=== PATIENT | male | born 1970 | race Caucasian/White ===

== ENCOUNTER → 2017-12-18 | Outpatient (CLI) | payer MEDICARE | END | disposition home or self-care (01) | LOC: RAH 07:47 | PROVIDERS: ATTEND Internal Medicine | DX: R10.11 Right upper quadrant pain (principal); R10.12 Left upper quadrant pain; R74.8 Abnormal levels of other serum enzymes | CPT/HCPCS: 74150 ==

== ENCOUNTER → 2018-04-13 | Outpatient (CLI) | payer MEDICARE | END | disposition home or self-care (01) | LOC: RAH 09:58 | PROVIDERS: ATTEND Internal Medicine | DX: K57.30 Diverticulosis of large intestine without perforation or abscess without bleeding (principal); M47.815 Spondylosis without myelopathy or radiculopathy, thoracolumbar region; K76.0 Fatty (change of) liver, not elsewhere classified; N32.89 Other specified disorders of bladder | CPT/HCPCS: 74176 ==

== ENCOUNTER 2018-06-17 11:29 | Observation (INO) | payer MEDICARE ==
[~2018-06-17] VITALS: Ht 167.6 cm; Wt 59.9 kg
[2018-06-17 12:26] LABS: BASOPHILS % (AUTO) 1.3 % (0.0-5.0); EOSINOPHILS % (AUTO) 4.9 % (0.0-8.0); HEMATOCRIT 39.8 % (42-54); LYMPHOCYTES % (AUTO) 32.7 % (21.0-51.0); MEAN CORPUSCULAR HEMOGLOBIN 29.3 pg (27.0-33.0); MEAN CORPUSCULAR HGB CONC 33.3 g/dL (32.0-36.0); NEUTROPHILS % (AUTO) 52.1 % (40.0-77.0); NUCLEATED RED BLOOD CELLS 0.1 % (0.0-0.19); PLATELET COUNT (AUTO) 170 K/uL (130-400); RED BLOOD CELL COUNT(AUTO) 4.53 MIL/uL (4.50-6.20); RED CELL DISTRIBUTION WIDTH 14.6 % (11.0-15.5); WHITE BLOOD COUNT (AUTO) 6.5 K/uL (4.8-10.8)
[2018-06-17 12:34] LABS: APPEARANCE,URINE Clear (CLEAR); BILIRUBIN,URINE Negative (NEGATIVE); COLOR,URINE Yellow (YELLOW); GLUCOSE, URINE (UA) Negative (NEGATIVE); KETONES,URINE Negative (NEGATIVE); LEUKOCYTE ESTERASE ,URINE Negative (NEGATIVE); NITRATE,URINE Negative (NEGATIVE); OCCULT BLOOD,URINE Negative (NEGATIVE); PROTEIN,URINE Negative (NEGATIVE); UROBILINOGEN,URINE 0.2 mg/dL (0.2-1.0)
[2018-06-17 12:35] LABS: CARBON DIOXIDE 29 mmol/L (21-32); CHLORIDE 104 mmol/L (101-111); CREATININE 0.9 mg/dL (0.5-1.5); GLOMERULAR FILTR. RATE CALC 95 mL/min (>60); GLUCOSE,RANDOM 79 mg/dL (70-105); POTASSIUM 3.7 mmol/L (3.5-5.1); SODIUM SERUM 140 mmol/L (136-145); UREA NITROGEN, BLOOD 14 mg/dL (7-18)
[2018-06-17 12:39] LABS: ALANINE AMINOTRANSFERASE 92 U/L (12-78); ALBUMIN 3.9 g/dL (3.5-5.0); ALCOHOL, BLOOD < 3 mg/dL (0-10); ASPARTATE AMINOTRANSFERASE 51 U/L (10-37); BILIRUBIN,TOTAL 0.4 mg/dL (0.2-1.0); TOTAL PROTEIN, SERUM 7.6 g/dL (6.0-8.3)
[2018-06-17 12:40] LABS: AMPHET/METH SCREEN,URINE NEGATIVE (NEGATIVE); BARBITURATE SCREEN, URINE NEGATIVE (NEGATIVE); BENZODIAZEPINES SCREEN,URINE NEGATIVE (NEGATIVE); CANNABINOID SCREEN,URINE POSITIVE (NEGATIVE); COCAINE SCREEN,URINE NEGATIVE (NEGATIVE); OPIATE SCREEN,URINE NEGATIVE (NEGATIVE); PHENCYCLIDINE SCREEN,URINE NEGATIVE (NEGATIVE)
[2018-06-17 12:53] LABS: INR 1.01 (0.85-1.15); PARTIAL THROMBOPLASTIN TIME 29.2 SEC (26.3-35.5); PROTHROMBIN TIME 10.6 SEC (9.6-11.6)
[2018-06-17] MEDS ORDERED: ASPIRIN 325 MG TABLET ONE (13:23)
[2018-06-17] MEDS ORDERED: ENOXAPARIN SODIUM 60 MG/0.6 ML SQ ONE (13:23)
[2018-06-17] MEDS ORDERED: CLOPIDOGREL BISULFATE 75 MG TAB ONE (13:24)
[2018-06-18 01:07] LABS: CREATINE KINASE, TOTAL 70 U/L (21-232); MYOGLOBIN 27 ng/mL (10-92); TROPONIN I < 0.04 ng/mL (0.00-0.06)
[2018-06-18 08:50] LABS: CREATINE KINASE, TOTAL 69 U/L (21-232); MYOGLOBIN 50 ng/mL (10-92); TROPONIN I < 0.04 ng/mL (0.00-0.06)
[2018-06-18] MEDS ORDERED: ENOXAPARIN SODIUM 60 MG/0.6 ML SQ ONE (09:40)
[2018-06-18] MEDS ORDERED: CLOPIDOGREL BISULFATE 75 MG TAB ONE (09:41)
[2018-06-18] MEDS ORDERED: ASPIRIN 325 MG TABLET ONE (09:41)
[2018-06-18] MEDS ORDERED: ACETAMINOPHEN 325 MG TAB ONE (09:41)
--- NOTE | 2018-06-18 10:21 | NUR ---
ELENA Pickering met with pt who lives alone, has provider thru [facility] daily from - to assist with ADLS and home management. No HH, uses [facility]. Friends Ángel and Serena Hook will transport home at ct Addendum: 06/18/18 at 1023 by JORGE POTTS SS Amended: Links added.
--- NOTE | 2018-06-18 14:25 | NUR ---
DC DC INSTRUCTIONS GIVEN TO PT INSTRUCTED TO F/U WITH DR HILL TOMORROW. PIV REMOVED TO RIGHT AC, SITE ASYMPTOMATIC, ADMISSION DATABASE DONE PT WAS IN ER HOLD. WAS DISCHARGE ALSO FROM ER HOLD AREA. PT AWAKE AND ALERT, DENIES ANY PAIN OR DISCOMFORTS AT THE TIME.
== END 2018-06-18 14:35 | disposition home or self-care (01) ==
LOC: EDH 11:29 → EDHIP 13:24
PROVIDERS: ADMIT Internal Medicine; ATTEND Internal Medicine
DX: R07.9 Chest pain, unspecified (principal); F90.9 Attention-deficit hyperactivity disorder, unspecified type; G89.29 Other chronic pain; M54.5 Low back pain; M48.00 Spinal stenosis, site unspecified
CPT/HCPCS: 36415 ×2; 71045; 80053; 80305; 81003; 82550 ×2; 83874 ×2; 84484 ×3; 85025; 85610; 85730; 93005; 99284; G0378 ×25; G0480; J1650 ×2

== ENCOUNTER → 2019-01-08 | Outpatient (CLI) | payer OTHER, MEDICARE | END | disposition home or self-care (01) | LOC: OIH 10:55 | PROVIDERS: ATTEND Internal Medicine | DX: I70.0 Atherosclerosis of aorta (principal); J44.9 Chronic obstructive pulmonary disease, unspecified | CPT/HCPCS: 71046 ==

== ENCOUNTER → 2022-08-14 | Emergency (ER) | payer OTHER, MEDICARE ==
[~2022-08-14] VITALS: Ht 157.5 cm; Wt 81.6 kg
[~2022-08-14] MED LIST: KETOROLAC 15MG/ML VIAL (15MG/ML) IM ONE
[2022-08-14 13:36] VITALS: BP 101/63
== END | disposition home or self-care (01) ==
LOC: EDH 13:34
DX: M54.50 Low back pain, unspecified (principal)
CPT/HCPCS: 99283; 96372; J1885